=== PATIENT | female | born 1955 | race Caucasian/White ===

== ENCOUNTER → 2024-11-11 | Outpatient (CLI) | payer MEDICARE, BC, SELFPAY ==
--- NOTE | 2024-11-11 14:20 | XR_ITS ---
Examination: Bone densitometry Date and time of exam:November 11, 2024 1419 hours INDICATIONS: Hysterectomy age 27 Technique: Lumbar spine and hip total bone mineralization values of an calculated. Peak reference and age match control results have been displayed. Findings: Lumbar spine total bone mineralization is1.085 gm/cm2. This is 0.3 standard deviations above peak reference. This is 2.5 standard deviations above age-matched controls. Hip total bone mineralization is 0.955 gm/cm2 This is 0.1 standard deviations above peak reference. This is 1.7 standard deviations above age-matched controls Impression: There is normal mineralization based on lumbar spine measurements. There is normal mineralization based on hip measurements Lumbar mineralization is increase 0.7% compared with December 09, 2019 Hip mineralization is decreased 0.4% compared with December 09, 2019
== END | disposition home or self-care (01) ==
LOC: CDIM 14:01
PROVIDERS: PCP Family Medicine; Referring Provider Family Medicine; Visit Provider Family Medicine
DX: M81.0 Age-related osteoporosis without current pathological fracture (principal)
CPT/HCPCS: 77080

== ENCOUNTER → 2025-03-29 | Outpatient (CLI) | payer MEDICARE, BC, SELFPAY ==
--- NOTE | 2025-03-29 13:30 | XR_ITS ---
Examination: Retroperitoneal ultrasound, complete Technique: Multiple high resolution grayscale images of the retroperitoneum obtained, including kidneys and bladder. Exam date and time:March 29, 2025 1345 hours INDICATIONS: History renal cystic disease FINDINGS: Right kidney 9.4 cm cortex 1.0 cm Upper pole probable dilated calyx 19 x 21 mm Left kidney 9.3 cm cortex 1.2 cm Mild bilateral renal parenchymal scar formation Contracted urinary bladder 28 cc unable to void IMPRESSION: Probable dilated calyx upper pole right kidney, consider CT scan abdomen pelvis without intravenous contrast follow-up
== END | disposition home or self-care (01) ==
PROVIDERS: PCP Surgery; Referring Provider Surgery; Visit Provider Surgery
DX: N28.89 Other specified disorders of kidney and ureter (principal)
CPT/HCPCS: 76770

== ENCOUNTER → 2025-04-20 | Outpatient (CLI) | payer MEDICARE, BC, SELFPAY ==
--- NOTE | 2025-04-20 09:00 | XR_ITS ---
Examination: CT abdomen and pelvis without contrast. Coronal 3-D reconstructions. Sagittal 2-D reconstructions. Date and time of exam:April 20, 2025 0937 hours INDICATIONS: Acquired renal cystic disease, renal sonogram March 29, 2025 cyst versus dilated calyx 19 x 21 mm upper pole right kidney CTDI: vol (mGy): 7.84 DLP: (mGycm): 387 Technique: Axial images of the abdomen have been obtained, 3 mm slice thickness Intravenous contrast material has not been administered. Low dose protocols were performed. One or more of the following dose reduction techniques were used; automated exposure control, adjustment of the mA and/or KV according to patient size, use of iterative reconstruction technique. Findings: No focal liver or splenic lesion No gallstones No pancreatic or adrenal mass Findings most consistent with right parapelvic cyst, 17 mm No renal or ureteral calculi, no hydronephrosis Aorta normal size No pericecal inflammatory change No bowel obstruction No pelvic mass Contracted urinary bladder Prominent osteopenia with moderate disc narrowing L3-L4, L4-L5 IMPRESSION: Findings most consistent with 17 mm right parapelvic cysts No renal or ureteral calculi, no hydronephrosis
== END | disposition home or self-care (01) ==
PROVIDERS: PCP Family Medicine; Referring Provider Surgery; Visit Provider Surgery
DX: N94.89 Other specified conditions associated with female genital organs and menstrual cycle (principal)
CPT/HCPCS: 74176